=== PATIENT | female | born 1965 | race Caucasian/White ===

== ENCOUNTER 2017-05-09 10:52 | Day surgery (SDC) | payer MEDICARE ==
[~2017-05-09 10:52] MED LIST: Lactated Ringers 1,000 ML IV SCH; Lidocaine 2% 5 ML SDV ONE; Midazolam 1 MG/ML 2 ML SDV ONE; Propofol 200 MG/20 ML SDV ONE; fentaNYL 100 MCG/2 ML SDV ONE
--- NOTE | 2017-05-09 11:18 | PCM.PREANE ---
Preanesthetic Assessment - Anesthesia/Transfusion/Family Hx Anesthesia History: Prior Anesthesia Without Reaction Family History of Anesthesia Reaction: No Transfusion History: No Prior Transfusion(s) Intubation History: Unknown - Review of Systems General: No Symptoms Pulmonary: No Symptoms Cardiovascular: No Symptoms Gastrointestinal: No Symptoms, Other (multiple colonoscopies due to h/o colon polyps) Neurological: No Symptoms Other: Reports: None - Physical Assessment Height: 1.73 m Weight: 87.09 kg ASA Class: 2 Mental Status: Alert & Oriented x3 Airway Class: Mallampati = 2 Dentition: Reports: Normal Dentition Thyro-Mental Finger Breadths: 2 Mouth Opening Finger Breadths: 3 ROM/Head Extension: Full Lungs: Clear to Auscultation, Normal Respiratory Effort Cardiovascular: Regular Rate, Regular Rhythm - Allergies Allergies/Adverse Reactions: Allergies Allergy/AdvReac Type Severity Reaction Status Date / Time codeine Allergy Burning Verified 05/04/17 17:16 latex Allergy Rash Verified 05/04/17 17:16 morphine Allergy Burning Verified 05/04/17 17:16 povidone-iodine Allergy Blisters Verified 05/04/17 17:16 [From Betadine] soap [From Betadine] Allergy Blisters Verified 05/04/17 17:16 - Blood Blood Available: No - Anesthesia Plan Pre-Op Medication Ordered: None - Acknowledgements Anesthesia Type Planned: MAC Pt an Appropriate Candidate for the Planned Anesthesia: Yes Alternatives and Risks of Anesthesia Discussed w Pt/Guardian: Yes Pt/Guardian Understands and Agrees with Anesthesia Plan: Yes PreAnesthesia Questionnaire Other HEENT History: has 1 lower partial permanent dental bridge Other Respiratory History: 35 year smoker Gastrointestinal History: Reports: Colon Polyp, GERD, Hemorrhoids [employer]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: , Other (See Below) Other OB/BYN History: abnormal PAP..cervical cancer Musculoskeletal History: Reports: Arthritis, Fracture, Other (See Below) Other Musculoskeletal History: states has pain "everywhere" from arthritis, hx of fx right ankle x3, fx left ankle x4, fx of right wrist and forearm, hx of scoliosis Neurological History: Reports: Other (See Below) Other Neuro History: states in 2000 during harvesting of bone graft from right hip (for cervical fusion), her nerve was cut 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 Psychiatric History: Reports: Anxiety Endocrine/Metabolic History: Reports: Diabetes, Gestational Hematologic History: Reports: Other (See Below) Other Hematologic History: states in 1986 had a blood clot in abdomen that was removed during Oncologic (Cancer) History: Reports: Cervix Dermatologic History: Reports: Psoriasis - Past Surgical History GI Surgical History: Reports: Colonoscopy (many), Other (See Below) Other GI Surgeries/Procedures: hx of hemorrhoidectomy Female Surgical History: Reports: Section (x3), Endometrial Ablation , Tubal Ligation, Other (See Below) Other Female Surgeries/Procedures: cervicectomy, laser on cervix or ovaries (abdominal procedure) Neurological Surgical History: Reports: C-Spine, Spinal Fusion (ACDF) - SUBSTANCE USE Smoking Status *Q: Current Every Day Smoker (1 04/26 ppd) Tobacco Use Within Last Twelve Months: Cigarettes Recreational Drug Use History: No - HOME MEDS Home Medications: Home Meds Calm Chuck 1 tab PO BEDTIME 05/04/17 [History] Cortisol Auto Machinist 1 tab PO BEDTIME 05/04/17 [History] Phentermine HCl 37.5 mg PO DAILY 05/04/17 [History] Progesterone,Micronized [Progesterone] 200 mg PO BEDTIME 05/04/17 [History] Ranitidine HCl [Heartburn Relief 150] 150 mg PO DAILY PRN 05/04/17 [History] - CURRENT (IN HOUSE) MEDS Current Meds: Current Medications Lactated Ringer's (Ringers, Lactated) 1,000 mls @ 125 mls/hr IV ASD[facility]RECTED [facility] Last Admin: 05/09/17 11:10 Dose: 125 mls/hr Discontinued Medications Fentanyl (Sublimaze) Confirm Administered Dose 100 mcg .ROUTE .STK-MED ONE Stop: 05/09/17 08:30 Lidocaine (Xylocaine-Mpf 2%) Confirm Administered Dose 5 ml .ROUTE .STK-MED ONE Stop: 05/09/17 08:30 Midazolam HCl (Versed 1 Mg/Ml) Confirm Administered Dose 2 mg .ROUTE .STK-MED ONE Stop: 05/09/17 08:31 Propofol (Diprivan 20 Ml) Confirm Administered Dose 400 mg .ROUTE .STK-MED ONE Stop: 05/09/17 08:30
[2017-05-09] MEDS ORDERED: fentaNYL 100 MCG/2 ML SDV ONE ×2 (11:29→11:30)
[2017-05-09] MEDS ORDERED: Propofol 200 MG/20 ML SDV ONE (11:33)
--- NOTE | 2017-05-09 11:56 | PCM.OPNOTE ---
- General Post-Op/Procedure Note Date of Surgery/Procedure: 05/09/17 Operative Procedure(s): Colonoscopy Pre Op Diagnosis: Personal history of colon polyps Post-Op Diagnosis: Sigmoid diverticulosis Anesthesia Technique: MAC (ASA II) Primary Surgeon: Hebert Cancino Condition: Good Free Text/Narrative:: Dictation [id number] CPT CODE 50022
[2017-05-09] MEDS ORDERED: Lactated Ringers 1,000 ML IV SCH (12:00)
--- NOTE | 2017-05-10 07:36 | OR ---
SURGEON: Hebert Cancino M.D. DATE OF PROCEDURE: 05/09/2017 OPERATION PERFORMED: Colonoscopy. ANESTHESIA: MAC. ASA CLASSIFICATION: II. PREOPERATIVE DIAGNOSIS: Personal history of colon polyps. POSTOPERATIVE DIAGNOSIS: Mild sigmoid diverticulosis. DESCRIPTION OF PROCEDURE: The patient was taken to the endoscopy room, positioned on the endoscopy table in the left lateral decubitus position. Time-out was called for appropriate identification of the patient and procedure. Monitored anesthesia care was provided. The colonoscope was inserted into the rectum and advanced with minimal difficulty to the cecum, which was identified by external pressure and internal landmarks. The colonoscope was retroflexed to visualize the ascending colon from below, then straightened and slowly withdrawn. The prep was excellent. The cecum, ascending colon, hepatic flexure, transverse colon, splenic flexure, and descending colon showed no tumors, polyps, diverticula, or angiodysplasia. The sigmoid colon demonstrated a few scattered sigmoid diverticula. No stricture, spasm, or bleeding was noted. Once the colonoscope was withdrawn to the rectum, it was retroflexed to visualize the anal orifice from above. No tumors or polyps were seen. There were some minor chronic hemorrhoidal changes. No acute hemorrhoidal changes were noted. The colonoscope was then straightened, the rectum aspirated, and the colonoscope removed. The patient tolerated the procedure well and was taken to recovery room in stable condition. BECKY [place] /[id number]
== END 2017-05-09 12:20 | disposition home or self-care (01) ==
LOC: MW.SDS 10:52
PROVIDERS: ATTEND Surgery
DX: Z12.11 Encounter for screening for malignant neoplasm of colon (principal); K57.30 Diverticulosis of large intestine without perforation or abscess without bleeding; F17.210 Nicotine dependence, cigarettes, uncomplicated; K21.9 Gastro-esophageal reflux disease without esophagitis; M19.90 Unspecified osteoarthritis, unspecified site; J30.9 Allergic rhinitis, unspecified; Z86.010 Personal history of colon polyps; Z85.41 Personal history of malignant neoplasm of cervix uteri; Z88.5 Allergy status to narcotic agent; Z88.8 Allergy status to other drugs, medicaments and biological substances; Z83.3 Family history of diabetes mellitus; Z79.899 Other long term (current) drug therapy; Z79.818 Long term (current) use of other agents affecting estrogen receptors and estrogen levels; Z98.51 Tubal ligation status; Z98.1 Arthrodesis status; Z90.710 Acquired absence of both cervix and uterus; Z98.890 Other specified postprocedural states
CPT/HCPCS: G0121; J2250; J3010; J7120; 00812; J2704